=== PATIENT | female | born 1980 | race Hispanic/Latino ===

== ENCOUNTER 2024-01-20 13:36 | Emergency (ER) | payer BC, OTHER ==
[~2024-01-20] VITALS: Ht 160 cm; Wt 93.4 kg
[2024-01-20] MEDS: MORPHINE 4 MG SYG IVP ONE (13:55)
[2024-01-20] MEDS: ONDANSETRON 4MG INJ IVP ONE (13:55)
[2024-01-20 13:57] LABS: BASOPHILS # (AUTO) 0.09 K/uL (0.00-0.20); BASOPHILS % (AUTO) 0.7 % (0.0-5.0); EOSINOPHILS # (AUTO) 0.07 K/uL (0.00-0.70); EOSINOPHILS % (AUTO) 0.5 % (0.0-8.0); HEMATOCRIT 45.1 % (36-48); IMMATURE GRANULOCYTE ABSOLUTE 0.04 K/uL (0-1); LYMPHOCYTES # (AUTO) 3.9 K/uL (1.0-4.8); LYMPHOCYTES % (AUTO) 27.9 % (21.0-51.0); MEAN CORPUSCULAR HEMOGLOBIN 30.2 pg (27.0-33.0); MEAN CORPUSCULAR HGB CONC 34.8 g/dL (32.0-36.0); MEAN CORPUSCULAR VOLUME 86.7 fL (79-99); MONOCYTES # (AUTO) 0.8 K/uL (0.1-1.0); MONOCYTES % (AUTO) 6.1 % (3.0-13.0); NEUTROPHILS # (AUTO) 8.9 K/uL (1.8-7.7); NEUTROPHILS % (AUTO) 64.5 % (40.0-77.0); PLATELET COUNT (AUTO) 481 K/uL (130-400); RED CELL DISTRIBUTION WIDTH 13.1 % (11.0-15.5); WHITE BLOOD COUNT (AUTO) 13.8 K/uL (4.8-10.8)
[2024-01-20 13:58] LABS: APPEARANCE,URINE CLEAR (CLEAR); BILIRUBIN,URINE NEGATIVE (NEGATIVE); COLOR,URINE LIGHT-YELLOW (YELLOW); GLUCOSE, URINE (UA) NEGATIVE (NEGATIVE); KETONES,URINE 10 mg/dL (NEGATIVE); LEUKOCYTE ESTERASE ,URINE NEGATIVE Leu/uL (NEGATIVE); NITRATE,URINE NEGATIVE (NEGATIVE); OCCULT BLOOD,URINE MODERATE (NEGATIVE); PH,URINE 6.5 (5.0-8.0); PROTEIN,URINE NEGATIVE (NEGATIVE); UROBILINOGEN,URINE 0.2 mg/dL (0.2-1.0)
[2024-01-20 14:08] LABS: ADD UA MICROSCOPIC YES
[2024-01-20 14:10] LABS: ALBUMIN 4.5 g/dL (3.5-5.0); CREATININE 0.7 mg/dL (0.5-1.0); TOTAL PROTEIN, SERUM 8.9 g/dL (6.0-8.3)
[2024-01-20 14:12] LABS: POTASSIUM 2.8 mmol/L (3.5-5.1)
[2024-01-20 14:17] LABS: HCG,QUALITATIVE URINE NEGATIVE (NEGATIVE)
[2024-01-20 14:18] LABS: BACTERIA,URINE RARE /HPF (None Seen); MUCUS,URINE RARE LPF (None Seen); SQUAMOUS EPITHELIAL CELL,UR FEW /HPF (0-2); WBC,URINE 0-1 /HPF (0-1)
[2024-01-20] MEDS: POTASSIUM CHLORIDE 20MEQ/100ML 100 ML IV ONE (14:59)
[2024-01-20] MEDS: KETOROLAC 15MG/ML VIAL (15MG/ML) IV ONE (15:00)
[2024-01-20] MEDS: MAGNESIUM OXIDE 400 MG TABLET PO ONE (15:00)
[2024-01-20] MEDS ORDERED: POTA-364 PO (16:34)
[2024-01-20 17:50] VITALS: BP 158/81; PULSE 55; RESP 17; O2SAT 96
== END 2024-01-20 18:30 | disposition home or self-care (01) ==
LOC: EDH 13:36
DX: E87.6 Hypokalemia (principal); R10.11 Right upper quadrant pain; I10 Essential (primary) hypertension; K21.9 Gastro-esophageal reflux disease without esophagitis; Z90.49 Acquired absence of other specified parts of digestive tract; Z98.890 Other specified postprocedural states; Z88.8 Allergy status to other drugs, medicaments and biological substances
CPT/HCPCS: 99284; 74176; 96365; 96375; 96366; 84484 ×2; 80053; 83690; 85025; 81001; 81025; 36415; 93005; J2405; J2270; J3480; J1885

== ENCOUNTER 2024-01-22 02:16 | Emergency (ER) | payer BC ==
[~2024-01-22] VITALS: Ht 160 cm; Wt 93.4 kg
[~2024-01-22 02:16] MED LIST: POTA-364 PO
[2024-01-22] MEDS: FAMOTIDINE 20MG VIAL IV ONE (02:40)
[2024-01-22] MEDS: ONDANSETRON 4MG INJ IVP ONE (02:40)
[2024-01-22 02:41] LABS: BASOPHILS % (AUTO) 0.7 % (0.0-5.0); EOSINOPHILS # (AUTO) 0.57 K/uL (0.00-0.70); EOSINOPHILS % (AUTO) 3.9 % (0.0-8.0); HEMATOCRIT 41.4 % (36-48); IMMATURE GRANULOCYTE ABSOLUTE 0.05 K/uL (0-1); LYMPHOCYTES # (AUTO) 5.4 K/uL (1.0-4.8); LYMPHOCYTES % (AUTO) 36.9 % (21.0-51.0); MEAN CORPUSCULAR HEMOGLOBIN 29.8 pg (27.0-33.0); MEAN CORPUSCULAR HGB CONC 33.8 g/dL (32.0-36.0); MEAN CORPUSCULAR VOLUME 88.1 fL (79-99); MONOCYTES # (AUTO) 1.2 K/uL (0.1-1.0); MONOCYTES % (AUTO) 8.2 % (3.0-13.0); NEUTROPHILS # (AUTO) 7.2 K/uL (1.8-7.7); PLATELET COUNT (AUTO) 476 K/uL (130-400); RED CELL DISTRIBUTION WIDTH 13.1 % (11.0-15.5); WHITE BLOOD COUNT (AUTO) 14.5 K/uL (4.8-10.8)
[2024-01-22] MEDS: MORPHINE 2 MG SYG IVP ONE ×2 (02:44→03:20)
[2024-01-22 02:49] LABS: HCG,QUALITATIVE URINE NEGATIVE (NEGATIVE)
[2024-01-22 02:50] LABS: APPEARANCE,URINE CLEAR (CLEAR); BACTERIA,URINE RARE /HPF (None Seen); BILIRUBIN,URINE NEGATIVE (NEGATIVE); COLOR,URINE COLORLESS (YELLOW); GLUCOSE, URINE (UA) NEGATIVE (NEGATIVE); KETONES,URINE NEGATIVE (NEGATIVE); LEUKOCYTE ESTERASE ,URINE NEGATIVE Leu/uL (NEGATIVE); NITRATE,URINE NEGATIVE (NEGATIVE); OCCULT BLOOD,URINE SMALL (NEGATIVE); PROTEIN,URINE NEGATIVE (NEGATIVE); SQUAMOUS EPITHELIAL CELL,UR FEW /HPF (0-2); UROBILINOGEN,URINE 0.2 mg/dL (0.2-1.0); WBC,URINE 0-1 /HPF (0-1)
[2024-01-22 02:53] LABS: INR 1.1 (0.85-1.15); PROTHROMBIN TIME 11.8 SEC (9.6-11.6)
[2024-01-22 02:54] LABS: PARTIAL THROMBOPLASTIN TIME 29.5 SEC (26.3-35.5)
[2024-01-22 02:55] LABS: CREATININE 0.9 mg/dL (0.5-1.0); POTASSIUM 4.1 mmol/L (3.5-5.1)
[2024-01-22 03:05] LABS: ALBUMIN 4.1 g/dL (3.5-5.0); BILIRUBIN,TOTAL 0.5 mg/dL (0.2-1.0); TOTAL PROTEIN, SERUM 7.8 g/dL (6.0-8.3)
[2024-01-22] MEDS: LACTATED RINGERS 1000ML 1,000 ML IV ONE (03:20)
[2024-01-22] MEDS: KETOROLAC 30MG VIAL (30MG/ML) IVP ONE (03:39)
[2024-01-22] MEDS ORDERED: IOHEXOL-350 75 ML VIAL IV ONE (04:10)
[2024-01-22] MEDS: KETOROLAC 15MG/ML VIAL (15MG/ML) IV ONE (05:14)
[2024-01-22 05:18] VITALS: BP 133/64; PULSE 71; RESP 20; O2SAT 100
== END 2024-01-22 05:25 | disposition home or self-care (01) ==
LOC: EDH 02:16
DX: R10.9 Unspecified abdominal pain (principal); I10 Essential (primary) hypertension; G43.909 Migraine, unspecified, not intractable, without status migrainosus; R10.2 Pelvic and perineal pain; Z79.899 Other long term (current) drug therapy; Z88.6 Allergy status to analgesic agent; Z90.49 Acquired absence of other specified parts of digestive tract; Z97.5 Presence of (intrauterine) contraceptive device
CPT/HCPCS: 99284; 74177; 96374; 96375; 80053; 84702; 83690; 85025; 85610; 85730; 83605; 81001; 81025; 36415; 96376; 84145; J7120; J3490; J2270 ×2; J2405; J1885 ×2; Q9967